=== PATIENT | female | born 1975 | race Caucasian/White ===

== ENCOUNTER 2017-07-20 10:56 | Day surgery (SDC) | payer MEDICAID, OTHER ==
[~2017-07-20] VITALS: Ht 144.8 cm; Wt 61.6 kg
[2017-07-20 11:50] VITALS: Ht 144.8 cm; Wt 61.6 kg
[2017-07-20] MEDS ORDERED: VITAMINS (11:52)
[2017-07-20 12:18] VITALS: BP 114/63; PULSE 58; RESP 16
[2017-07-20] MEDS ORDERED: MIDAZOLAM 1 MG/ML 2 ML INJ ONE ×2 (13:49→13:50)
[2017-07-20] MEDS ORDERED: MEPERIDINE 50 MG INJ ONE (13:50)
[2017-07-20 14:13] VITALS: BP 108/66; RESP 14
--- NOTE | 2017-07-20 14:36 | OPPN ---
Date/Time of Note Date/Time of Note DATE: 07/20/17 TIME: 14:32 DIVERTICULOSIS RIGHT COLON OTHERWISE NORMAL COLONSCOPY REPEAT COLONOSCOPY 10 YRS Operative Report Preoperative Diagnosis rectal bleeding SCREENING COLONOSCOPY Postoperative Diagnosis DIVERTICULOSIS RT COLON Operation/Procedure Performed COLONOSCOPY Surgeon see signature line home health assistant NONE Anesthesia: moderate sedation ([id number]/DEMORAL 75MG/MODERATE SEDATION [id number]) Estimated blood loss: none Transfusion Required none Specimen NONE Grafts/Implants none Complications none MONAE ROMANO MD Jul 20, 2017 14:36
--- NOTE | 2017-07-21 05:43 | GILP ---
DATE OF PROCEDURE: PREOPERATIVE DIAGNOSIS: Screening colonoscopy. The patient had history of rectal bleeding. PROCEDURE DONE: Colonoscopy. POSTOPERATIVE DIAGNOSIS: Diverticulosis in the right colon; otherwise, normal colonoscopy. The patient was sedated with 3 mg IV Versed and 75 mg IV Demerol. Total moderate sedation time was 1 4 minutes and very carefully advanced Olympus video colonoscope all the way to cecum. Cecum, ascend ing colon, transverse colon, descending colon, sigmoid colon essentially negative for any polyps; ho wever, in the right colon, there were few diverticula noted. They were photographed. Postop, the p atient had no complication. Plan will be to advise a high fiber diet. Follow up as outpatient. Re peat colonoscopy in 10 years. Dictated By: MONAE NOEL Conf#: [id number] DID#: [id number] CC: MONAE ROMANO M.D.;*EndCC*
== END 2017-07-20 14:24 | disposition home or self-care (01) ==
LOC: GIL 10:56
PROVIDERS: ATTEND Internal Medicine
DX: K62.5 Hemorrhage of anus and rectum (principal); K57.90 Diverticulosis of intestine, part unspecified, without perforation or abscess without bleeding
CPT/HCPCS: 45378; 84703; J2175; J2250; Z7610